=== PATIENT | female | born 1995 | race Caucasian/White ===

== ENCOUNTER 2019-04-12 16:39 | Emergency (ER) | payer MEDICAID, OTHER ==
[~2019-04-12] VITALS: Ht 167.6 cm; Wt 75.0 kg
[2019-04-12] MEDS ORDERED: dexamethasone sod phosphate 10mg/ml inj PO STA (16:58)
[2019-04-12] MEDS ORDERED: ondansetron 4mg rapidly disintigrating tab PO ONE (17:00)
[2019-04-12 18:04] VITALS: BP 114/63
[2019-04-12 18:56] LABS: MONOTEST NEGATIVE (Neg)
== END 2019-04-12 19:20 | disposition home or self-care (01) ==
LOC: ER 16:40
DX: J02.9 Acute pharyngitis, unspecified (principal); R59.0 Localized enlarged lymph nodes; J39.2 Other diseases of pharynx; H92.09 Otalgia, unspecified ear; Z88.2 Allergy status to sulfonamides
CPT/HCPCS: 36415; 86308; 87081; 87880; 99283; J1100